=== PATIENT | female | born 1975 | race Two or more races ===

== ENCOUNTER 2021-03-27 15:59 | Emergency (ER) | payer OTHER ==
[2021-03-27 16:50] VITALS: BP 125/84; PULSE 80; TEMP 98.5; BMI 22.4
== END 2021-03-27 20:10 | disposition left against medical advice (07) ==
LOC: JER 15:59
DX: R10.84 Generalized abdominal pain (principal)
CPT/HCPCS: 99281-25

== ENCOUNTER 2021-11-28 21:07 | Emergency (ER) | payer OTHER ==
[2021-11-28 21:17] VITALS: BMI 24.1
[2021-11-28] MEDS ORDERED: SODIUM CHLORIDE 0.9% 500 ML INFUS.BAG IV ONE (23:11)
[2021-11-28] MEDS ORDERED: ACETAMINOPHEN 1000 MG/100 ML BAG IVPB ONE (23:11)
[2021-11-28] MEDS ORDERED: ACETAMINOPHEN INJECTION 100 ML IVPB ONE (23:18)
[2021-11-28 23:45] LABS: BASO % 0.1 % (0-2.0); HEMATOCRIT 48.5 % (32.4-45.2); HEMOGLOBIN 15.6 GM/dL (10.7-15.3); LYMPH % 4.8 % (8-40); MCH 26.2 pg (25.7-33.7); MCHC 32.2 g/dl (32.0-36.0); MEAN CELL VOLUME 81.3 fl (80-96); MONO % 9.1 % (3.8-10.2); PLATELET COUNT 286 10^3/uL (134-434); RBC 5.96 M/mm3 (3.60-5.2); WHITE BLOOD COUNT 19.8 K/mm3 (4.0-10.0)
[2021-11-29 00:01] LABS: ACTIVATED PTT 28.2 SECONDS (25.2-36.5)
[2021-11-29 00:09] LABS: INR 1.19 (0.83-1.09); PROTHROMBIN TIME (PATIENT) 13.4 SEC (9.7-13.0)
[2021-11-29 00:11] LABS: CHLORIDE 102 mmol/L (98-107); SODIUM 138 mmol/L (136-145)
[2021-11-29 00:14] LABS: ALBUMIN 3.4 g/dl (3.4-5.0); ANION GAP 20 MMOL/L (8-16); BLOOD UREA NITROGEN 12.9 mg/dL (7-18); CALCIUM 8.5 mg/dL (8.5-10.1); CO2 17 mmol/L (21-32); GLUCOSE,RANDOM 298 mg/dL (74-106)
[2021-11-29 00:17] LABS: CREATININE 1.4 mg/dL (0.55-1.3); SGOT/AST 15 U/L (15-37); SGPT/ALT 18 U/L (13-61)
[2021-11-29 00:19] LABS: BILIRUBIN,TOTAL 0.3 mg/dL (0.2-1); TOT PROT 7.4 g/dl (6.4-8.2)
[2021-11-29 00:20] LABS: ALK PHOS 92 U/L (45-117)
[2021-11-29 00:26] LABS: LACTIC ACID 12.1 mmol/L (0.4-2.0)
[2021-11-29 00:31] LABS: LIPASE 6848 U/L (73-393)
[2021-11-29] MEDS ORDERED: LACTATED RINGERS SOLUTION 1000 ML INFUS.BAG IV ONE (00:35)
[2021-11-29] MEDS ORDERED: POTASSIUM CHLORIDE TABS 20 MEQ TABLET.ER (FP) PO ONE ×2 (00:36→00:48)
[2021-11-29] MEDS ORDERED: ONDANSETRON 4 MG/2 ML VIAL IVPUSH ONE ×2 (00:36→10:59)
[2021-11-29] MEDS ORDERED: ONDANSETRON 4 MG/2 ML VIAL ONE (00:47)
[2021-11-29] MEDS ORDERED: HYDROmorphone HCL CARPU-JECT 2 MG/1 ML DISP.SYRIN IVPUSH ONE ×3 (01:17→10:59)
[2021-11-29] MEDS ORDERED: HYDROmorphone HCl 2 MG/ML VIAL ONE ×3 (01:42→11:03)
[2021-11-29 04:55] LABS: LACTIC ACID 10.2 mmol/L (0.4-2.0)
[2021-11-29 06:53] VITALS: TEMP 98.5
[2021-11-29] MEDS ORDERED: SODIUM CHLORIDE 1,000 ML IV SCH (07:00)
[2021-11-29] MEDS ORDERED: PIPERACILLIN/TAZOB 4.5 GM 4.5 GM in DEXTROSE 5%-WATER - 100 ML IVPB ONE (11:31)
[2021-11-29 12:49] VITALS: BP 142/81; PULSE 120
== END 2021-11-29 12:49 | disposition short-term general hospital (02) ==
LOC: JER 21:07
PROC: 3E033GC Introduction of Other Therapeutic Substance into Peripheral Vein, Percutaneous Approach (ICD-10-PCS; 2021-11-28)
PROC: 3E03329 Introduction of Other Anti-infective into Peripheral Vein, Percutaneous Approach (ICD-10-PCS; principal; 2021-11-29)
PROC: 3E033NZ Introduction of Analgesics, Hypnotics, Sedatives into Peripheral Vein, Percutaneous Approach (ICD-10-PCS; 2021-11-29)
PROC: 3E033GC Introduction of Other Therapeutic Substance into Peripheral Vein, Percutaneous Approach (ICD-10-PCS; 2021-11-29)
PROC: 3E033GC Introduction of Other Therapeutic Substance into Peripheral Vein, Percutaneous Approach (ICD-10-PCS; 2021-11-29)
PROC: 3E033GC Introduction of Other Therapeutic Substance into Peripheral Vein, Percutaneous Approach (ICD-10-PCS; 2021-11-29)
DX: K85.90 Acute pancreatitis without necrosis or infection, unspecified (principal); R94.31 Abnormal electrocardiogram [ECG] [EKG]; R10.84 Generalized abdominal pain
CPT/HCPCS: 36415; 71046-TC-FY; 74176-TC; 80053; 82550; 83605; 83690; 84484; 85025; 85610; 85730; 93005; 93010; 99285-25; C9803; J0131; U0003; U0005